=== PATIENT | male | born 1950 | race African-American/Black ===

== ENCOUNTER 2016-11-16 14:40 | Inpatient (IN) | payer MEDICARE, MEDICAID ==
[~2016-11-16] VITALS: Ht 188 cm; Wt 61.2 kg
[2016-11-16] MEDS ORDERED: ZANTAC 7575 MG ORAL (14:45)
[2016-11-16] MEDS ORDERED: KEPPRA XR500 MG ORAL (14:47)
[2016-11-16] MEDS ORDERED: FOLIC ACID1 MG ORAL (14:47)
[2016-11-16] MEDS ORDERED: VITAMIN D2000 UNI3 PO (14:47)
[2016-11-16] MEDS ORDERED: VITAMIN B-1100 MG ORAL (14:47)
[2016-11-16] MEDS ORDERED: VITAMIN C500 M1 ORAL (14:47)
[2016-11-16] MEDS ORDERED: PROTONIX40 MG ORAL (14:49)
[2016-11-16] MEDS ORDERED: LACTULOSE20 GM/301 ORAL (14:49)
[2016-11-16] MEDS ORDERED: XALATAN2.5 ML BOTH EYES (14:49)
[2016-11-16] MEDS ORDERED: RISPERDAL3 MG PO (14:49)
--- NOTE | 2016-11-16 15:32 | Emergency Room Report ---
History of Present Illness General Chief Complaint: Abnormal Labs Source: Medical Record, EMS Present Illness HPI Patient presents emergency department today complaining of weakness and abnormal labs. Patient's primary care physician is Dr. Lizama. Patient apparently has been staying at a custodial and progressively getting weaker and not eating or drinking. Patient is anemic and appears have evidence of failure to thrive. Patient was by her further evaluation. Patient at baseline has a history of schizophrenia is not very verbal. He's not provide much history. 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 No other associated signs and symptoms. No other complaints were noted. Allergies: Coded Allergies: No Known Allergies (Unverified , 11/16/16) Patient History Past Medical History: other - schizophrenia Past Surgical History: none Pertinent Family History: none Social History: Denies: alcohol use, drug use, smoking Social History Narrative stays at a custodial Reviewed Nursing Documentation: PMH: Agreed, PSxH: Agreed Review of Systems All Other Systems: limited - patient is not cooperative Physical Exam Vital Signs Date Time Temp Pulse Resp B/P Pulse Ox O2 Delivery O2 Flow Rate FiO2 11/16/16 14:35 100.2 96 18 92/60 95 Room Air Sp02 EP Interpretation: reviewed, normal General Appearance: alert, cachetic, thin Head: atraumatic Eyes: bilateral eye normal inspection ENT: normal ENT inspection, hearing grossly normal, normal voice Neck: normal inspection, full range of motion, supple, no bony tend Respiratory: normal inspection, lungs clear, normal breath sounds, no respiratory distress, no retraction, no wheezing Cardiovascular #1: regular rate, rhythm, no edema Gastrointestinal: normal inspection, normal bowel sounds, non tender, soft, no guarding, no hernia Genitourinary: no CVA tenderness Musculoskeletal: normal inspection, back normal, normal range of motion Neurologic: normal inspection, alert, responsive, speech normal Psychiatric: depressed affect Skin: normal inspection, normal color, no rash Medical Decision Making Diagnostic Impression: Primary Impression: failure to thrive, uti Additional Impressions: UTI (urinary tract infection) Failure to thrive ER Course Patient presents emergency department today with altered mental status and foul- smelling urine. Patient also is not eating and becoming more confused and weak. Differential diagnoses include sepsis, UTI, pneumonia, dehydration, fluid thrive just name a few.Given the severity of the patient's presentation I felt this is a highly complex patient. This patient required extensive workup. Patient's laboratory workup showed an elevated white blood cell count. Urine shows evidence of infection. Patient was started on antibiotics. Case was discussed in detail with Dr. Lizama admitting physician. Patient will be admitted to [facility] for further treatment. Labs Test 11/16/16 15:18 11/16/16 16:15 White Blood Count 17.8 K/UL (4.8-10.8) Red Blood Count 4.42 M/UL (4.70-6.10) Hemoglobin 14.7 G/DL (14.2-18.0) Hematocrit 40.9 % (42.0-52.0) Mean Corpuscular Volume 93 FL (80-99) Mean Corpuscular Hemoglobin 33.2 PG (27.0-31.0) Mean Corpuscular Hemoglobin Concent 35.9 G/DL (32.0-36.0) Red Cell Distribution Width 12.2 % (11.6-14.8) Platelet Count 164 K/UL (150-450) Mean Platelet Volume 8.1 FL (6.5-10.1) Neutrophils (%) (Auto) 86.0 % (45.0-75.0) Lymphocytes (%) (Auto) 8.4 % (20.0-45.0) Monocytes (%) (Auto) 5.1 % (1.0-10.0) Eosinophils (%) (Auto) 0.1 % (0.0-3.0) Basophils (%) (Auto) 0.4 % (0.0-2.0) Prothrombin Time 11.6 SEC (9.30-11.50) Prothromb Time International Ratio 1.1 (0.9-1.1) Activated Partial Thromboplast Time 30 SEC (23-33) Sodium Level 142 mEQ/L (135-145) Potassium Level 4.0 mEQ/L (3.4-4.9) Chloride Level 104 mEQ/L (98-107) Carbon Dioxide Level 23 mEQ/L (20-30) Anion Gap 15 (5-15) Blood Urea Nitrogen 25 mg/dL (7-23) Creatinine 1.3 mg/dL (0.7-1.2) Estimat Glomerular Filtration Rate > 60 mL/min (>60) Glucose Level 136 mg/dL (74-106) Calcium Level 9.3 mg/dL (8.6-10.2) Total Bilirubin 0.8 mg/dL (0.0-1.2) Aspartate Amino Transf (AST/SGOT) 12 U/L (5-40) Alanine Aminotransferase (ALT/SGPT) 10 U/L (3-41) Alkaline Phosphatase 98 U/L (40-129) Total Creatine Kinase 23 U/L (38-174) Creatine Kinase MB < 1.5 ng/mL (< 6.7) Creatine Kinase MB Relative Index 6.5 Troponin I < 0.30 ng/mL (<=0.30) Pro-B-Type Natriuretic Peptide 390 pg/mL (0-125) Total Protein 7.4 g/dL (6.6-8.7) Albumin 3.8 g/dL (3.5-5.2) Globulin 3.6 g/dL Albumin/Globulin Ratio 1.0 (1.0-2.7) Lipase 19 U/L (< 60) Urine Color Yellow Urine Appearance Cloudy Urine pH 7 (4.5-8.0) Urine Specific [place] 1.005 (1.005-1.035) Urine Protein 2+ (NEGATIVE) Urine Glucose (UA) Negative (NEGATIVE) Urine Ketones 1+ (NEGATIVE) Urine Occult Blood 5+ (NEGATIVE) Urine Nitrite Negative (NEGATIVE) Urine Bilirubin Negative (NEGATIVE) Urine Urobilinogen 1 MG/DL (0.0-1.0) Urine Leukocyte Esterase 3+ (NEGATIVE) Urine RBC 5-10 /HPF (0 - 0) Urine WBC Tntc /HPF (0 - 0) Urine Squamous Epithelial Cells None /LPF (NONE/OCC) Urine Bacteria Many /HPF (NONE) EKG Diagnostic Results Rate: normal Rhythm: NSR ST Segments: no acute changes Rhythm Strip Diag. Results EP Interpretation: yes Rate: 93 Rhythm: NSR, no PVC's, no ectopy Chest X-Ray Diagnostic Results Chest X-Ray Diagnostic Results : Chest X-Ray Ordered: Yes # of Views/Limited/Complete: 1 View Indication: Shortness of Breath EP Interpretation: No Interpretation: no consolidation, no effusion, no pneumothorax, no acute cardiopulmonary disease Impression: No acute disease Last Vital Signs Date Time Temp Pulse Resp B/P Pulse Ox O2 Delivery O2 Flow Rate FiO2 11/16/16 14:35 100.2 96 18 92/60 95 Room Air Status: improved Disposition: ADMITTED INPATIENT Condition: Serious IVORY ARROYO M.D. Nov 16, 2016 15:32
[2016-11-16 15:40] LABS: MEAN CORPUSCULAR HEMOGLOBIN 33.2 PG (27.0-31.0); MEAN CORPUSCULAR HGB CONC 35.9 G/DL (32.0-36.0); MEAN CORPUSCULAR VOLUME 93 FL (80-99); MEAN PLATELET VOLUME 8.1 FL (6.5-10.1); PLATELET COUNT 164 K/UL (150-450); RED BLOOD COUNT 4.42 M/UL (4.70-6.10); RED CELL DISTRIBUTION WIDTH 12.2 % (11.6-14.8); WHITE BLOOD COUNT 17.8 K/UL (4.8-10.8)
[2016-11-16 15:41] LABS: BASOPHILS % (AUTO) 0.4 % (0.0-2.0); EOSINOPHILS % (AUTO) 0.1 % (0.0-3.0); LYMPHOCYTES % (AUTO) 8.4 % (20.0-45.0); MONOCYTES % (AUTO) 5.1 % (1.0-10.0)
[2016-11-16 15:48] VITALS: BP 94/55
[2016-11-16 15:54] LABS: INR 1.1 (0.9-1.1); PROTHROMBIN TIME 11.6 SEC (9.30-11.50)
[2016-11-16] MEDS ORDERED: Acetaminophen 650 MG SUPP RECTAL ONE (16:00)
[2016-11-16 16:06] LABS: ALANINE AMINOTRANSFERASE 10 U/L (3-41); ANION GAP 15 (5-15); ASPARTATE AMINO TRANSFERASE 12 U/L (5-40); CALCIUM 9.3 mg/dL (8.6-10.2); CARBON DIOXIDE 23 mEQ/L (20-30); CHLORIDE 104 mEQ/L (98-107); CREATININE 1.3 mg/dL (0.7-1.2); GLOMERULAR FILTRATION RATE > 60 mL/min (>60); HEMOLYSIS 9; LIPASE 19 U/L (< 60); SODIUM 142 mEQ/L (135-145); TOTAL PROTEIN 7.4 g/dL (6.6-8.7); TROPONIN I < 0.30 ng/mL (<=0.30)
--- NOTE | 2016-11-16 16:10 | Diagnostic Imaging Report ---
Indication: COUGH Technique: One view of the chest Comparison: none Findings: The lungs are hyperinflated. Lungs and pleural spaces are clear. There are multiple old healed left rib fracture deformities. The heart size is normal. There is mild thoracic scoliotic deformity Impression: Hyperinflation, likely on the basis of COPD No acute process
[2016-11-16 16:17] LABS: CKMB < 1.5 ng/mL (< 6.7)
[2016-11-16] MEDS ORDERED: cefTRIAXone 1 GM in NS 55 ML IVPB ONE (16:30)
[2016-11-16] MEDS ORDERED: LORazepam Inj 2mg/ml 1ml IV ONE (16:30)
[2016-11-16 16:38] LABS: APPEARANCE,URINE CLOUDY; KETONES,URINE 1+ (NEGATIVE); LEUKOCYTE ESTERASE ,URINE 3+ (NEGATIVE); NITRITE,URINE NEGATIVE (NEGATIVE); PH,URINE 7 (4.5-8.0); PROTEIN,URINE 2+ (NEGATIVE); UROBILINOGEN,URINE 1 MG/DL (0.0-1.0)
[2016-11-16 17:00] LABS: BACTERIA,URINE MANY /HPF; WBC,URINE TNTC /HPF (0 - 0)
[2016-11-16 17:39] VITALS: BP 93/58
[2016-11-16] MEDS ORDERED: Lactulose 20gm/30ml UDC ORAL PRN (19:00)
[2016-11-16 20:00] VITALS: BP 94/56
[2016-11-16] MEDS: D5NS 1,000 ML IV SCH (21:20)
[2016-11-16 23:53] VITALS: BP 94/56
[2016-11-17 04:00] VITALS: BP 136/72
[2016-11-17 07:10] LABS: BASOPHILS % (AUTO) 0.2 % (0.0-2.0); EOSINOPHILS % (AUTO) 0.2 % (0.0-3.0); MEAN CORPUSCULAR HEMOGLOBIN 32.2 PG (27.0-31.0); MEAN CORPUSCULAR HGB CONC 33.5 G/DL (32.0-36.0); MEAN CORPUSCULAR VOLUME 96 FL (80-99); MEAN PLATELET VOLUME 9.1 FL (6.5-10.1); NEUTROPHILS % (AUTO) 82.6 % (45.0-75.0); PLATELET COUNT 133 K/UL (150-450); RED BLOOD COUNT 3.44 M/UL (4.70-6.10); RED CELL DISTRIBUTION WIDTH 12.2 % (11.6-14.8); WHITE BLOOD COUNT 11.4 K/UL (4.8-10.8)
[2016-11-17 07:13] LABS: ALANINE AMINOTRANSFERASE 13 U/L (3-41); ANION GAP 11 (5-15); ASPARTATE AMINO TRANSFERASE 15 U/L (5-40); CALCIUM 8.7 mg/dL (8.6-10.2); CARBON DIOXIDE 24 mEQ/L (20-30); CHLORIDE 102 mEQ/L (98-107); GLOMERULAR FILTRATION RATE > 60 mL/min (>60); HEMOLYSIS 2; POTASSIUM 3.5 mEQ/L (3.4-4.9); SODIUM 137 mEQ/L (135-145); TOTAL PROTEIN 6.1 g/dL (6.6-8.7)
[2016-11-17] MEDS ORDERED: Enoxaparin 40mg Inj SUBQ SCH (09:00)
[2016-11-17] MEDS: Thiamine 100mg tab ORAL SCH (09:42)
[2016-11-17] MEDS: Vitamin D 1000 IU Tab ORAL SCH (09:42)
[2016-11-17] MEDS: Ascorbic Acid 500mg tab ORAL SCH (09:42)
[2016-11-17] MEDS: D5NS 1,000 ML IV SCH ×2 (09:44→21:30)
[2016-11-17] MEDS: Docusate 250mg cap ORAL SCH (09:44)
[2016-11-17] MEDS ORDERED: D5NS 1000ml IV ONE (10:43)
[2016-11-17 12:00] VITALS: BP 82/47
[2016-11-17] MEDS ORDERED: Sodium Chloride 550 ML IV ONE (12:30)
[2016-11-17] MEDS ORDERED: LORazepam Inj 2mg/ml 1ml IVP PRN (12:30)
--- NOTE | 2016-11-17 14:21 | History & Physical ---
History and Physical History & Physicial seen and examined. Full Dictation completed Timmy Lizama MD Nov 17, 2016 14:21
--- NOTE | 2016-11-17 14:26 | General Progress Note ---
Assessment/Plan Status: stable Assessment/Plan 1- Acute encephalopathy 2- UTI 3- Psych 4- ARF 5- Dehydration 6- Gi-DVT prophylaxia Plan: coninue with empiric antibiotic Neuro and Psych services are consulted. PRN Restrain and Xanax is allowed for patient safety Subjective ROS Limited/Unobtainable: Yes Allergies: Coded Allergies: No Known Allergies (Unverified , 11/16/16) Objective Last 24 Hour Vital Signs Date Time Temp Pulse Resp B/P Pulse Ox O2 Delivery O2 Flow Rate FiO2 11/17/16 12:00 97.7 81 16 82/47 99 Room Air 11/17/16 04:00 97.2 74 18 136/72 97 Room Air 11/16/16 23:53 97.7 81 20 94/56 96 Room Air 11/16/16 20:00 98.1 82 20 94/56 95 Room Air 11/16/16 17:43 97.9 82 17 93/58 96 Room Air 11/16/16 17:39 97.9 82 17 93/58 96 Room Air 11/16/16 16:36 98.7 11/16/16 15:48 101.1 92 20 94/55 97 Room Air 11/16/16 14:35 100.2 96 18 92/60 95 Room Air Intake and Output 11/16/16 11/17/16 19:00 07:00 Intake Total 1055 ml 560 ml Balance 1055 ml 560 ml Intake Oral 0 ml IV Total 1055 ml 560 ml # Voids 3 Laboratory Tests 11/16/16 15:18: White Blood Count 17.8H, Red Blood Count 4.42L, Hemoglobin 14.7, Hematocrit 40.9L, Mean Corpuscular Volume 93, Mean Corpuscular Hemoglobin 33.2H, Mean Corpuscular Hemoglobin Concent 35.9, Red Cell Distribution Width 12.2, Platelet Count 164, Mean Platelet Volume 8.1, Neutrophils (%) (Auto) 86.0H, Lymphocytes ( %) (Auto) 8.4L, Monocytes (%) (Auto) 5.1, Eosinophils (%) (Auto) 0.1, Basophils (%) (Auto) 0.4, Prothrombin Time 11.6H, Prothromb Time International Ratio 1.1, Activated Partial Thromboplast Time 30, Sodium Level 142, Potassium Level 4.0, Chloride Level 104, Carbon Dioxide Level 23, Anion Gap 15, Blood Urea Nitrogen 25H, Creatinine 1.3H, Estimat Glomerular Filtration Rate > 60, Glucose Level 136H, Lactic Acid Level 1.80, Calcium Level 9.3, Total Bilirubin 0.8, Aspartate Amino Transf (AST/SGOT) 12, Alanine Aminotransferase (ALT/SGPT) 10, Alkaline Phosphatase 98, Total Creatine Kinase 23L, Creatine Kinase MB < 1.5, Creatine Kinase MB Relative Index 6.5, Troponin I < 0.30, Pro-B-Type Natriuretic Peptide 390H, Total Protein 7.4, Albumin 3.8, Globulin 3.6, Albumin/Globulin Ratio 1.0, Lipase 19 11/16/16 16:15: Urine Color Yellow, Urine Appearance Cloudy, Urine pH 7, Urine Specific [place] 1.005, Urine Protein 2+H, Urine Glucose (UA) Negative, Urine Ketones 1+H, Urine Occult Blood 5+H, Urine Nitrite Negative, Urine Bilirubin Negative, Urine Urobilinogen 1H, Urine Leukocyte Esterase 3+H, Urine RBC 5-10H, Urine WBC TntcH , Urine Squamous Epithelial Cells None, Urine Bacteria ManyH 11/17/16 06:10: White Blood Count 11.4H, Red Blood Count 3.44L, Hemoglobin 11.1L, Hematocrit 33.2L, Mean Corpuscular Volume 96, Mean Corpuscular Hemoglobin 32.2H, Mean Corpuscular Hemoglobin Concent 33.5, Red Cell Distribution Width 12.2, Platelet Count 133L, Mean Platelet Volume 9.1, Neutrophils (%) (Auto) 82.6H, Lymphocytes (%) (Auto) 11.0L, Monocytes (%) (Auto) 6.0, Eosinophils (%) (Auto) 0.2, Basophils (%) (Auto) 0.2, Sodium Level 137, Potassium Level 3.5, Chloride Level 102, Carbon Dioxide Level 24, Anion Gap 11, Blood Urea Nitrogen 17, Creatinine 1.0, Estimat Glomerular Filtration Rate > 60, Glucose Level 110H, Calcium Level 8.7, Total Bilirubin 0.7, Aspartate Amino Transf (AST/SGOT) 15, Alanine Aminotransferase (ALT/SGPT) 13, Alkaline Phosphatase 135H, Total Protein 6.1L, Albumin 3.1L, Globulin 3.0, Albumin/Globulin Ratio 1.0 Height (Feet): 6 Height (Inches): 2.00 Weight (Pounds): 135 General Appearance: no apparent distress EENT: PERRL/EOMI Neck: supple Cardiovascular: normal rate Respiratory/Chest: lungs clear Abdomen: soft Extremities: non-tender 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 as patient is AOx1 Timmy Lizama MD Nov 17, 2016 14:26
[2016-11-17 16:53] VITALS: BP 89/60
[2016-11-17 20:00] VITALS: BP 98/58
--- NOTE | 2016-11-17 22:45 | History and Physical Report ---
DATE OF ADMISSION: 11/16/2016 SOURCE OF INFORMATION: EMR. HISTORY OF PRESENT ILLNESS: The patient is a 66-year-old male with a history of underlying psychiatric problem, agitation. The patient is a poor historian. The patient has no history of changes in the mental status and cognition. Abnormal laboratory workup in the custodial facility. The patient was transferred to the emergency room for evaluation. Initial evaluation shows UTI with evidence of leukocytosis. The patient at the time of evaluation is AO x1, poor historian. Based on the facility information, the patient denies any seizure disorder, no abnormal images, no shortness of breath. No fever. No chills. PAST MEDICAL HISTORY: Chronic constipation and psychiatric disorder. PAST SURGICAL HISTORY: Denies. MEDICATIONS: Outpatient medications including but not limited to lactulose, Keppra, Protonix, and Risperdal. ALLERGIES: NKDA. FAMILY HISTORY: Reviewed and noncontributory. SOCIAL HISTORY: The patient is currently a resident of [facility]. Positive for history of tobacco abuse, quantification . The patient denies history of alcohol abuse or drug abuse. REVIEW OF SYSTEMS: All 12 elements of review of systems are reviewed with the patient. Related positives and negatives all reviewed as above. PHYSICAL EXAMINATION: VITAL SIGNS: Blood pressure is 100/60, temperature 100.2, pulse rate 90-100, respiratory rate 15-20, and pulse oximetry 95% on room air. HEAD AND NECK: Atraumatic and normocephalic. CHEST: Clear to auscultation. HEART: S1 and S2. Regular rate and rhythm. ABDOMEN: Soft. No organomegaly. MUSCULOSKELETAL: No gross focal motor deficit. NEUROLOGIC: The patient is awake, alert, and oriented x1. LABORATORY AND DIAGNOSTIC DATA: Labs dated 11/16/2016 reviewed and showed BUN is 25, creatinine 1.3, and glucose 136. WBC 17.8, hemoglobin 14.7, and platelets 464,000. ASSESSMENT: 1. Acute encephalopathy, differential diagnosis versus cardiovascular. 2. Acute renal failure. 3. Dehydration. 4. Urinary tract infection. 5. Psychiatric disorder/schizophrenia. 6. Systemic inflammatory response syndrome. 7. Gastrointestinal and deep vein thrombosis prophylaxes. PLAN OF CARE: Psychiatry and Neurology have been consulted. Continue with the neuro check. We will do the swallow evaluation. We will start hydration. Initiate empiric antibiotic regimen ceftriaxone. We will monitor. COMMENT: The time of this dictation does not reflect as to time of encounter, which occurred on 11/16/2016 in the afternoon. Timmy Lizama M.D. DR: SMITHA JOB#: [id number] CC:
--- NOTE | 2016-11-17 23:00 | Consultation ---
DATE OF CONSULTATION: 11/17/2016 HISTORY OF PRESENT ILLNESS: The patient is a 66-year-old male with a history of urinary tract infection, failure to thrive, and history of psychotic disorder, who has been admitted to the hospital for further evaluation and treatment. Psychiatry was consulted. The patient presents with impairment of concentration, memory, attention, disorganized and he is having cognitive impairment. He has waxing and waning consciousness at times agitated. The patient is currently on an antipsychotic risperidone 3 mg per day, which was started. PAST PSYCHIATRIC HISTORY: Psychotic disorder, not know whether he has any psychiatric hospitalization or not. Has been treated with risperidone 3 mg h.s. PAST MEDICAL HISTORY: Urinary tract infection, ARF, and dehydration. ALLERGIES: No known drug allergies. SUBSTANCE ABUSE HISTORY: There is no known history of illicit drug use or alcohol. MENTAL STATUS EXAMINATION: The patient was asleep, arousable, confused and disoriented. Mood is neutral. Affect is constricted. Congruent mood. Thought process, there is a paucity of thought content. Thought content, no suicidal or homicidal ideation. Cognition is impaired. ASSESSMENT: [place] I Psychotic disorder by history. Rule out delirium. [place] II Deferred. [place] III As above. [place] IV Moderate. [place] V 20. PLAN: 1. We will start the patient on Zyprexa, which also will help him to have increased appetite. 2. We will continue to follow and readjust the medication. Smith Kruger M.D. DR: MARLEN JOB#: [id number] CC:
[2016-11-18] VITALS: BP 103/62
--- NOTE | 2016-11-18 01:28 | Wound Care Consultation ---
Wound Assessment Wound Assessment : Wound Present on Admission: Yes New Wound: No Status Change of Wound: No Wound Location Body Site Modif: mid Wound Location Body Site: sacral Wound Type: pressure ulcer Gerber Test: Does not Gerber Pressure Ulcer Stage: I Wound Length: 4.5 Wound Width: 5.5 Percent of Wound [place]/Red: 100 Wound Drainage Amount: None Wound Drainage Odor: None/Absent Tissue Surrounding Wound: Erythemic Wound General Appearance: Reddened Wound Comment #1 sacral stage I pressure ulcer Recommendation -Local wound care per protocol -Keep clean and dry -Turn and reposition -Optimize nutrition -Offload heels -Heel protector on both heels -Low air loss SPR mattress -Assess and f/u accordingly for any changes KAR ADAMSON RN Nov 18, 2016 01:28
[2016-11-18 07:40] VITALS: BP 101/55
[2016-11-18] MEDS: Docusate 250mg cap ORAL SCH (09:21)
[2016-11-18] MEDS: Thiamine 100mg tab ORAL SCH (09:21)
[2016-11-18] MEDS: Ascorbic Acid 500mg tab ORAL SCH (09:24)
[2016-11-18] MEDS: Vitamin D 1000 IU Tab ORAL SCH (09:25)
[2016-11-18] MEDS: D5NS 1,000 ML IV SCH ×2 (10:00→22:30)
--- NOTE | 2016-11-18 11:16 | General Progress Note ---
Assessment/Plan Status: stable Assessment/Plan 1- Acute encephalopathy 2- SIR secondary to UTI 3- Psych 4- ARF 5- Dehydration 6- Gi-DVT prophylaxia Plan: coninue with Rocephin Neuro and Psych services are consulted. PRN Restrain and Xanax is allowed for patient safety Subjective ROS Limited/Unobtainable: Yes Allergies: Coded Allergies: No Known Allergies (Unverified , 11/16/16) Objective Last 24 Hour Vital Signs Date Time Temp Pulse Resp B/P Pulse Ox O2 Delivery O2 Flow Rate FiO2 11/18/16 07:40 96.8 82 19 101/55 99 Room Air 11/18/16 00:00 98.1 92 20 103/62 98 Room Air 11/17/16 20:00 98.4 81 20 98/58 93 Room Air 11/17/16 16:53 98.2 75 16 89/60 97 Room Air 11/17/16 12:00 97.7 81 16 82/47 99 Room Air Intake and Output 11/17/16 11/18/16 19:00 07:00 Intake Total 900 ml 400 ml Balance 900 ml 400 ml Intake Oral 800 ml 400 ml IV Total 100 ml # Voids 5 4 Laboratory Tests 11/17/16 14:51: Opiates Screen [Pending], Oxycodone Level [Pending], Blood Methadone Screen [ Pending], Blood Propoxyphene Screen [Pending], Blood Barbiturates Screen [ Pending], Phencyclidine (PCP) Screen [Pending], Amphetamines Screen [Pending], Benzodiazepines Screen [Pending], Blood Cocaine/Metabolite Screen [Pending], Marijuana (THC) Screen [Pending], Blood Drug Screen Comment [Pending] Height (Feet): 6 Height (Inches): 2.00 Weight (Pounds): 135 General Appearance: no apparent distress EENT: PERRL/EOMI Neck: supple Cardiovascular: normal rate Respiratory/Chest: lungs clear Abdomen: soft Extremities: non-tender 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
[2016-11-18 11:36] VITALS: BP 105/71
[2016-11-18 16:00] VITALS: BP 107/70
[2016-11-18 19:37] VITALS: BP 110/63
--- NOTE | 2016-11-18 21:30 | Progress Note ---
SUBJECTIVE: The patient continues to be confused, disoriented, presenting with waxing and waning consciousness, anxiety and agitation controlled. No behavior issues. MENTAL STATUS EXAMINATION: The patient is disoriented and confused. Mood is neutral. Affect is flat. Congruent with mood. Thought process, there is a paucity of thought content. No suicidal or homicidal ideation. Cognition is impaired. ASSESSMENT: Delirium due to general medical condition. PLAN: 1. The patient will be continued on current treatment, no medication changes. 2. Provide reality orientation. Smith Kruger M.D. DR: Santy JOB#: [id number] CC:
[2016-11-18 23:26] VITALS: BP 119/67
[2016-11-19] MEDS ORDERED: LORazepam Inj 2mg/ml 1ml IV ONE (01:00)
[2016-11-19 04:00] VITALS: BP 88/53
[2016-11-19] MEDS: Vitamin D 1000 IU Tab ORAL SCH (08:48)
[2016-11-19] MEDS: Ascorbic Acid 500mg tab ORAL SCH (08:48)
[2016-11-19] MEDS: Docusate 250mg cap ORAL SCH (08:48)
[2016-11-19] MEDS: Thiamine 100mg tab ORAL SCH (08:49)
[2016-11-19 09:01] LABS: BASOPHILS % (AUTO) 0.5 % (0.0-2.0); EOSINOPHILS % (AUTO) 1.8 % (0.0-3.0); LYMPHOCYTES % (AUTO) 25.3 % (20.0-45.0); MEAN CORPUSCULAR HEMOGLOBIN 32.1 PG (27.0-31.0); MEAN CORPUSCULAR HGB CONC 33.1 G/DL (32.0-36.0); MEAN CORPUSCULAR VOLUME 97 FL (80-99); MEAN PLATELET VOLUME 7.8 FL (6.5-10.1); NEUTROPHILS % (AUTO) 60.5 % (45.0-75.0); PLATELET COUNT 174 K/UL (150-450); RED BLOOD COUNT 3.31 M/UL (4.70-6.10); RED CELL DISTRIBUTION WIDTH 12.6 % (11.6-14.8); WHITE BLOOD COUNT 4.6 K/UL (4.8-10.8)
[2016-11-19 09:25] LABS: ALANINE AMINOTRANSFERASE 18 U/L (3-41); ANION GAP 10 (5-15); ASPARTATE AMINO TRANSFERASE 15 U/L (5-40); CALCIUM 8.9 mg/dL (8.6-10.2); CARBON DIOXIDE 26 mEQ/L (20-30); CHLORIDE 107 mEQ/L (98-107); CREATININE 0.9 mg/dL (0.7-1.2); GLOMERULAR FILTRATION RATE > 60 mL/min (>60); HEMOLYSIS 4; POTASSIUM 3.4 mEQ/L (3.4-4.9); SODIUM 143 mEQ/L (135-145); TOTAL PROTEIN 6.5 g/dL (6.6-8.7)
--- NOTE | 2016-11-19 10:21 | Emergency Room Report ---
History of Present Illness General Chief Complaint: Abnormal Labs Source: Medical Record, EMS Present Illness Allergies: Coded Allergies: No Known Allergies (Unverified , 11/16/16) Nursing Documentation-PMH Hx COPD: Yes Hx Diabetes: Yes Hx Memory Loss: Yes Hx Weakness: Yes Physical Exam Vital Signs Date Time Temp Pulse Resp B/P Pulse Ox O2 Delivery O2 Flow Rate FiO2 11/16/16 14:35 100.2 96 18 92/60 95 Room Air Procedures Laceration/Wound Repair Laceration/Wound Repair : Consent: Verbal Wound Location: head Wound's Depth, Shape: superficial Wound Explored: clean Betadine Prep?: Yes Wound Debrided: minimal Wound Repaired With: Steri-strips, Dermabond Layer Closure?: No Splint Applied?: No Sling Applied?: No Patient Tolerated: Well Complications: None Progress Stellate 3cm laceration to left forehead over medial aspect of left eyebrow Patient combative, ?psychotic, would not allow suture repair and also my concern for staff safety Patient given exisitng PRN order of ativan for sedation Was soft wrist restrained Dermabond applied to wound, covered with steri strips Tolerated procedure Sent back to floor Dr Lizama informed Medical Decision Making Diagnostic Impression: Primary Impression: failure to thrive, uti Additional Impressions: Failure to thrive UTI (urinary tract infection) Forehead laceration Qualified Codes: S01.81XA - Laceration without foreign body of other part of head, initial encounter Last Vital Signs Date Time Temp Pulse Resp B/P Pulse Ox O2 Delivery O2 Flow Rate FiO2 11/19/16 04:00 97.9 72 20 88/53 99 Room Air Disposition: ADMITTED INPATIENT Condition: Serious Referrals: Timmy Lizama MD (PCP) CB MCNEAL M.D. Nov 19, 2016 10:21
[2016-11-19] MEDS ORDERED: Surgicel 4in x 8in TOPIC ONE (10:30)
[2016-11-19] MEDS: D5NS 1,000 ML IV SCH (11:00)
[2016-11-19] MEDS ORDERED: D5NS 1000ml IV ONE (15:35)
[2016-11-19] MEDS ORDERED: Tubing IV Secondary IV ONE (15:35)
[2016-11-19 16:00] VITALS: BP 82/49
[2016-11-19 20:00] VITALS: BP 96/58
--- NOTE | 2016-11-19 20:19 | General Progress Note ---
Assessment/Plan Status: stable Assessment/Plan 1- Acute encephalopathy 2- SIR secondary to UTI 3- Psych 4- ARF 5- Dehydration 6- Gi-DVT prophylaxia 7. Fall incident- frontal laceration Plan: coninue with Rocephin PRN Restrain and Xanax is allowed for patient safety Forehead suture Negative Brain CT Ok to DC NH with PO antibiotic Subjective ROS Limited/Unobtainable: Yes - patient not verbally communicative at his baseline Allergies: Coded Allergies: No Known Allergies (Unverified , 11/16/16) Objective Last 24 Hour Vital Signs Date Time Temp Pulse Resp B/P Pulse Ox O2 Delivery O2 Flow Rate FiO2 11/19/16 16:00 97.3 70 18 82/49 98 Room Air 11/19/16 04:00 97.9 72 20 88/53 99 Room Air 11/18/16 23:26 98.6 76 20 119/67 100 Room Air Intake and Output 11/18/16 11/19/16 19:00 07:00 Intake Total 660 ml Output Total 2500 ml Balance -1840 ml Intake Oral 560 ml IV Total 100 ml Output Urine Total 2500 ml # Voids 6 2 # Bowel Movements 1 Laboratory Tests 11/19/16 07:51: White Blood Count 4.6L, Red Blood Count 3.31L, Hemoglobin 10.6L, Hematocrit 32.2L, Mean Corpuscular Volume 97, Mean Corpuscular Hemoglobin 32.1H, Mean Corpuscular Hemoglobin Concent 33.1, Red Cell Distribution Width 12.6, Platelet Count 174, Mean Platelet Volume 7.8, Neutrophils (%) (Auto) 60.5, Lymphocytes (% ) (Auto) 25.3, Monocytes (%) (Auto) 12.0H, Eosinophils (%) (Auto) 1.8, Basophils (%) (Auto) 0.5, Sodium Level 143, Potassium Level 3.4, Chloride Level 107, Carbon Dioxide Level 26, Anion Gap 10, Blood Urea Nitrogen 6L, Creatinine 0.9, Estimat Glomerular Filtration Rate > 60, Glucose Level 98, Calcium Level 8.9, Total Bilirubin 0.3, Aspartate Amino Transf (AST/SGOT) 15, Alanine Aminotransferase (ALT/SGPT) 18, Alkaline Phosphatase 76, Total Protein 6.5L, Albumin 3.3L, Globulin 3.2, Albumin/Globulin Ratio 1.0 Height (Feet): 6 Height (Inches): 2.00 Weight (Pounds): 135 General Appearance: WD/WN, no apparent distress EENT: other - laceration in left frontal area, about 1 inch long Neck: supple Cardiovascular: normal rate Respiratory/Chest: lungs clear 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
[2016-11-20] VITALS: BP 98/57
[2016-11-20 04:00] VITALS: BP 82/41
[2016-11-20 08:00] VITALS: BP 93/59
--- NOTE | 2016-11-20 08:21 | Diagnostic Imaging Report ---
Indication: FALL Technique: Continuous helical CT scanning of the head was performed without intravenous contrast material. Axial and coronal 5 mm sections were generated. Dose: Total Dose Length Product - DLP [address] Dose Index - CTDIvol(s) 70.38 mGy. Comparison: None Findings: There is prominence of cortical sulci and the ventricular system. Evidence of a previous left posterior frontal craniotomy is noted with some low density just beneath the craniotomy defect. No shift of midline structures. No abnormal extra-axial fluid collections. There is mucoperiosteal thickening in the left sphenoid sinus. Impression: Atrophy. Minimal mucoperiosteal thickening in the sphenoid sinus. Evidence of previous left craniotomy with subjacent encephalomalacia. The above report is concordant with preliminary reading by [facility] . The CT scanner at [facility] is accredited by the [employer] and the scans are performed using protocols designed to limit radiation exposure to as low as reasonably achievable to attain images of sufficient resolution adequate for diagnostic evaluation.
[2016-11-20] MEDS: Thiamine 100mg tab ORAL SCH (08:55)
[2016-11-20] MEDS: Vitamin D 1000 IU Tab ORAL SCH (08:55)
[2016-11-20] MEDS: Docusate 250mg cap ORAL SCH (08:55)
[2016-11-20] MEDS: Ascorbic Acid 500mg tab ORAL SCH (08:55)
[2016-11-20] MEDS ORDERED: OLANZAPINE5 MG ORAL (11:14)
[2016-11-20] MEDS ORDERED: LEVAQUIN500 MG ORAL (11:14)
--- NOTE | 2016-11-20 11:15 | General Progress Note ---
Assessment/Plan Status: stable Assessment/Plan 1- Acute encephalopathy 2- SIR secondary to UTI: resolved 3- Psych 4- ARF: resolved 5- Dehydration 6- Gi-DVT prophylaxia 7. Fall incident- frontal laceration Plan: PRN Restrain and Xanax is allowed for patient safety Forehead suture Negative Brain CT Ok to DC NH with PO antibiotic today Subjective ROS Limited/Unobtainable: Yes Allergies: Coded Allergies: No Known Allergies (Unverified , 11/16/16) Objective Last 24 Hour Vital Signs Date Time Temp Pulse Resp B/P Pulse Ox O2 Delivery O2 Flow Rate FiO2 11/20/16 08:00 97.0 66 21 93/59 97 Room Air 11/20/16 04:00 98.0 60 18 82/41 98 Room Air 11/20/16 00:00 97.5 74 20 98/57 100 Room Air 11/19/16 20:00 97.7 71 20 96/58 99 Room Air 11/19/16 16:00 97.3 70 18 82/49 98 Room Air Intake and Output 11/19/16 11/20/16 19:00 07:00 Intake Total 840 ml Balance 840 ml Intake Oral 840 ml # Voids 4 1 Height (Feet): 6 Height (Inches): 2.00 Weight (Pounds): 135 General Appearance: no apparent distress EENT: PERRL/EOMI Neck: supple Cardiovascular: normal rate Respiratory/Chest: lungs clear Abdomen: soft Extremities: non-tender 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
[2016-11-20 11:47] VITALS: BP 120/50
[2016-11-20] MEDS ORDERED: Levofloxacin 500mg tab ORAL SCH (13:00)
[2016-11-20 16:24] VITALS: BP 98/62
--- NOTE | 2016-11-20 19:00 | Progress Note ---
DATE: 11/20/2016 SUBJECTIVE: The patient is doing well. No behavioral issues. No apparent distress. Calm and sleeping and was arousable. The patient is still disoriented and confused. MENTAL STATUS EXAMINATION: The patient is confused and disoriented. Mood is neutral. Affect is constricted, congruent with mood. Continues to have waxing and waning consciousness, however, improving. Thought process is disorganized. ASSESSMENT: 1. Acute encephalopathy. 2. Urinary tract infection is resolved. 3. Psychotic disorder. PLAN: 1. The patient will be continued on restrain and medication. 2. We will continue follow and readjust the medication. Smith Kruger M.D. DR: KELECHI JOB#: [id number] CC:
--- NOTE | 2016-11-21 08:23 | Discharge Summary ---
Discharge Summary Hospital Course Date of Admission Nov 16, 2016 at 16:15 Date of Discharge Nov 20, 2016 at 17:11 Admitting Diagnosis altered mental status, failure to thrive HPI Jamarcus Lowe is a 66 year old male who was admitted on Nov 16, 2016 at 16: 15 for Altered Mental Status, Failure To Thrive Hospital Course dc summary #[id number] Discharge Medications New Medications: Levofloxacin* (Levaquin*) 500 Mg Tablet 500 MG ORAL DAILY for 7 Days, TAB Olanzapine (Olanzapine) 5 Mg Tablet 10 MG ORAL BEDTIME for 30 Days, #30 TAB Continued Medications: Ascorbic Acid* (Vitamin C*) 500 Mg Tablet 500 MG ORAL DAILY, #30 TAB 0 Refills Cholecalciferol (Vitamin D3) (Vitamin D) 2,000 Unit Tablet 2000 UNIT PO, TAB Folic Acid* (Folic Acid*) 1 Mg Tablet 1 MG ORAL DAILY, TAB Lactulose (Lactulose*) 20 Gm/30 Ml Solution 10 ML ORAL PRN for Constipation, ML 0 Refills Latanoprost* (Xalatan*) 2.5 Ml Drops 1 DROP BOTH EYES BEDTIME, #2.5 ML 0 Refills Levetiracetam (Keppra Xr) 500 Mg Tab.er.24h 500 MG ORAL BID, #30 TAB 0 Refills Pantoprazole* (Protonix*) 40 Mg Tablet.dr 40 MG ORAL DAILY, TAB Ranitidine Hcl (Zantac 75) 75 Mg Tablet 150 MG ORAL BID, #7 TAB 0 Refills Risperidone (Risperdal) 3 Mg Tablet 3 MG PO, TAB Thiamine Hcl* (Vitamin B-1*) 100 Mg Tablet 100 MG ORAL DAILY, #30 TAB 0 Refills Discharge Condition Upon Discharge: stable Discharge Disposition Patient was discharged to SNF/Subacute Facility(03) Discharge Diagnoses: Discharge Instructions Discharge Instructions Special Instructions I have been assigned to complete a D/C Summary on this account. I was not involved in the patient management Nneka Martin NP (Vanchtein) Nov 21, 2016 08:23
--- NOTE | 2016-11-21 23:15 | Discharge Summary 2 SIG ---
DATE OF ADMISSION: 11/16/2016 DATE OF DISCHARGE: 11/20/2016 REASON FOR ADMISSION: 66-year-old male, resident [facility] the [facility] , with a past medical history of COPD, GERD, schizophrenia, and anemia presented to emergency room for evaluation due to failure to thrive, not eating at the [facility] facility, and generalized weakness. Workup in the emergency room revealed acute renal failure, and urinary tract infection. ADMITTING DIAGNOSES: 1. Acute encephalopathy. 2. Acute renal failure. 3. Dehydration. 4. Urinary tract infection. 5. Psychotic disorder/schizophrenia. 6. Systemic inflammatory response syndrome HOSPITAL STAY: The patient was admitted. The patient was started on the empiric antibiotic. The patient was started on the IV fluids. Renal parameters and electrolytes were closely monitored. Renal parameters down to normal prior to discharge. Acute renal failure likely precipitated by dehydration. Urine culture revealed Klebsiella pneumonia. Antibiotic regimen optimized based on culture, and antibiotic changed to oral prior to discharge. Patient initially with leukocytosis and fever, which subsequently resolved with treatment. The patient sustained accidental fall while being in the hospital and as a result sustained frontal headache and laceration with subsequent laceration repair by emergency room doctor. CT of the head revealed no acute intracranial pathology, but evidence of old left craniotomy. Chest x-ray revealed findings of bilateral hyperinflation of lungs consistent with known history of COPD. Pulse oximetry was stable on room air. No evidence of COPD exacerbation. Psychiatric doctor seen and evaluated the patient. The patient with a known history of schizophrenia. Psychiatric medication regimen was optimized. DVT and GI prophylaxis provided. DISCHARGE DIAGNOSES: 1. Acute encephalopathy, likely due to urinary tract infection. 2. Acute renal failure secondary to dehydration. 3. Dehydration. 4. Urinary tract infection. 5. Systemic inflammatory response syndrome, secondary to urinary tract infection. 6. Status post accidental fall with a frontal head laceration on 11/19/2016. 7. Repair of frontal head laceration. 8. Psychiatric disorder/schizophrenia. DISCHARGE MEDICATIONS: See medication reconciliation list. The patient was discharged on oral antibiotics to be continued for seven more days at the [facility]. DISCHARGE INSTRUCTIONS: The patient was discharged to the [facility] facility. Follow up with medical doctor at the facility. Mohammad Rezvani, M.D. I have been assigned to dictate discharge summary on this account and I was not involved in the patient's management. Nneka Martin (Vanchtein) N.PIker DR: Dev JOB#: [id number] CC: ERNESTO
--- NOTE | 2016-11-22 19:08 | Cardiology Report ---
APPROVED REPORT EKG Measurement Heart [id number] Normal sinus rhythm Possible Left atrial enlargement Rightward axis Pulmonary disease pattern Abnormal ECG
== END 2016-11-20 17:11 | DRG 689 ==
LOC: EDBD 14:40 → EDBEDREQ 14:51 → EMR 16:00 → 4E 16:15 → EDBEDREQ 16:55
PROC: 0HQ1XZZ Repair Face Skin, External Approach (ICD-10-PCS; principal; 2016-11-19)
DX: N39.0 Urinary tract infection, site not specified (principal); G93.40 Encephalopathy, unspecified; N17.9 Acute kidney failure, unspecified; R62.7 Adult failure to thrive; F20.9 Schizophrenia, unspecified; E86.0 Dehydration; S01.81XA Laceration without foreign body of other part of head, initial encounter; W19.XXXA Unspecified fall, initial encounter; R51 Headache; F29 Unspecified psychosis not due to a substance or known physiological condition; J44.9 Chronic obstructive pulmonary disease, unspecified; K21.9 Gastro-esophageal reflux disease without esophagitis
CPT/HCPCS: 36415; 70450; 71010; 80053; 80299; 80301; 81003; 82550; 82553; 82962; 83605; 83690; 83880; 84484; 85025; 85610; 85730; 86850; 86900; 86901; 87040; 87081; 87086; 87181; 93005